=== PATIENT | female | born 1985 | race Caucasian/White ===

== ENCOUNTER 2017-05-04 15:54 | Emergency (ER) | payer OTHER ==
[~2017-05-04] VITALS: Ht 162.6 cm; Wt 55.0 kg
[~2017-05-04 15:54] MED LIST: IBUP-232 PO; PERM5CRE TOP; RANI300T PO; Z.0.NO CURRENT MEDS
[2017-05-04 15:55] VITALS: BP 113/73; PULSE 86; RESP 20; TEMP 97.4; O2SAT 100
--- NOTE | 2017-05-04 16:24 | PD ---
Physical Exam Date Seen by Provider: May 04, 2017 Time Seen by Provider: 16:21 Data Data Last Documented VS Vital Signs Date Time Temp Pulse Resp B/P Pulse Ox O2 Delivery O2 Flow Rate FiO2 05/04/17 15:55 97.4 86 20 113/73 100 Room Air [facility] Supervised Visit with [facility]: No Narrative Course 31 YO F with complaint of N/V, cold sweats x 2 days. Patient states that she is detoxing from IV opiates. Last use 2 days ago. Denies SI. States went to [facility] and sent here. LMP 04/26 Vitals reviewed. Awaiting bed placement. Cece Treoj May 04, 2017 16:24
--- NOTE | 2017-05-04 16:45 | PD ---
HPI Chief Complaint: Medical Clearance Time Seen by Provider: 16:45 Travel History International Travel<30 days: No Contact w/Intl Traveler<30days: No Traveled to known affect area: No History of Present Illness HPI 31-year-old female presents the emergency department with signs and symptoms of narcotic withdrawal. Patient attempted to go to the [facility] clinic today but was turned away as they were full. Patient is having abdominal pain, cramps, nausea, vomiting and diarrhea. She denies fever or other symptoms. Patient has no known drug allergies. PFSH Past Medical History Anxiety: Yes Diminished Hearing: No Hepatitis: Yes (C; STRAIN A-1) Reproductive: Yes (HPV) ?: Not LMP: 04/26/17 Past Surgical History Gynecologic Surgery: Yes (COLPOSCOPY) Social History Alcohol Use: No Tobacco Use: Yes (11/27 PPD) Substance Use: Yes Allergies-Medications (Allergen,Severity, Reaction): Coded Allergies: No Known Allergies (Verified , 06/26/10) Reported Meds & Prescriptions Reported Meds & Active Scripts Active Zantac (Ranitidine HCl) 300 Mg Tab 300 Mg PO HS Motrin (Ibuprofen) 600 Mg Tab 600 Mg PO TID Elimite (Permethrin) 5 % Cr 60 Gm TOP DIRECTED PATIENT INSTRUCTIONS: THOROUGHLY MASSAGE ELIMITE (PERMETHRIN) 5% CREAM INTO THE SKIN FROM HEAD TO TOE COVERING ALL EXTERNAL BODY PARTS. THE CREAM SHOULD BE REMOVED BY WASHING (SHOWER OR BATH) 8 TO 14 HOURS AFTER APPLICATION. PATIENTS MAY EXPERIENCE ITCHING AFTER TREATMENT AND IS RARELY A SIGN OF TREATMENT FAILURE. Reported No Current Meds (Miscellaneous Medication) [facility] Review of Systems Except as stated in HPI: all other systems reviewed are Neg General / Constitutional: No: Fever Eyes: No: Visual changes HENT: No: Headaches Cardiovascular: No: Chest Pain or Discomfort Respiratory: No: Shortness of Breath Gastrointestinal: No: Abdominal Pain Genitourinary: No: Dysuria Musculoskeletal: No: Pain Skin: No Rash Neurologic: No: Weakness Psychiatric: No: Depression Endocrine: No: Polydipsia Hematologic/Lymphatic: No: Easy Bruising Physical Exam Narrative GENERAL: Patient appears in no acute distress. SKIN: Warm and dry. Normal color. Normal turgor. No signs of infection from recent IV drug use. Multiple puncture wounds are noted. HEAD: Atraumatic. Normocephalic. EYES: Pupils equal and round. No scleral icterus. No injection or drainage. ENT: No nasal bleeding or discharge. Mucous membranes pink and moist. Pharynx is clear. NECK: Trachea midline. No JVD. CARDIOVASCULAR: Regular rate and rhythm. RESPIRATORY: No accessory muscle use. Clear to auscultation. Breath sounds equal bilaterally. GASTROINTESTINAL: Abdomen soft, mild diffuse tenderness, nondistended. Hepatic and splenic margins not palpable. MUSCULOSKELETAL: Extremities without clubbing, cyanosis, or edema. No obvious deformities. NEUROLOGICAL: Awake and alert. No obvious cranial nerve deficits. Motor grossly within normal limits. Five out of 5 muscle strength in the arms and legs. Normal speech. PSYCHIATRIC: Appropriate mood and affect; insight and judgment normal. Data Data Last Documented VS Vital Signs Date Time Temp Pulse Resp B/P Pulse Ox O2 Delivery O2 Flow Rate FiO2 05/04/17 15:55 97.4 86 20 113/73 100 Room Air Orders Basic Metabolic Panel (Bmp) (05/04/17 16:50) Complete Blood Count With Diff (05/04/17 16:50) Iv Access Insert/Monitor (05/04/17 16:50) Ecg Monitoring (05/04/17 16:50) Oximetry (05/04/17 16:50) Ondansetron Inj (Zofran Inj) (05/04/17 17:00) Sodium Chlor 0.9% 1000 Ml Inj (Ns 1000 M (05/04/17 16:50) Sodium Chloride 0.9% Flush (Ns Flush) (05/04/17 17:00) Ketorolac Inj (Toradol Inj) (05/04/17 17:00) [facility] Medical Decision Making Medical Screen Exam Complete: Yes Emergency Medical Condition: Yes Differential Diagnosis IV drug abuse. Narcotic withdrawal. Needed for detox. Narrative Course Patient is medically stable at time of exam. Patient is given information regarding other detox options other than [facility]. Patient was ordered for IV Zofran, fluids, and lab check. Patient chose to leave AMA. Diagnosis Primary Impression: Left against medical advice Disposition: 07 AGAINST MEDICAL ADVICE Condition: Stable Donnie Joseph May 04, 2017 16:45 Donnie Joseph May 04, 2017 16:45
[2017-05-04] MEDS ORDERED: SODIUM CHLOR 0.9% 1000 ML INJ 1,000 ML IV SCH (16:50)
[2017-05-04] MEDS ORDERED: ONDANSETRON HCL 4 MG/2 ML VIAL IVP ONE (17:00)
[2017-05-04] MEDS ORDERED: SODIUM CHLORIDE 0.9% FLUSH 10 ML FLUSH IV FLUSH PRN (17:00)
[2017-05-04] MEDS ORDERED: KETOROLAC TROMETHAMINE 30 MG/ML (IVP) VIAL IVP ONE (17:00)
== END 2017-05-04 17:15 | disposition left against medical advice (07) ==
LOC: NEPE 15:54
DX: R11.2 Nausea with vomiting, unspecified (principal)
CPT/HCPCS: 99281